=== PATIENT | female | born 1950 | race Caucasian/White ===

== ENCOUNTER 2020-07-08 07:03 | Observation (INO) | payer OTHER, SELFPAY ==
[2020-07-08] MEDS ORDERED: dexAMETHasone 10 MG/ML VIAL ONE (08:56)
[2020-07-08] MEDS ORDERED: ASPIRIN 81 MG CHEWABLE TABLET ONE (08:56)
[2020-07-08] MEDS ORDERED: NA CHLORIDE 0.9% 1,000 ML ONE (08:57)
[2020-07-08] MEDS ORDERED: FAMOTIDINE 20 MG/2 ML VIAL IV ONE (08:57)
[2020-07-08] MEDS ORDERED: CEFTRIAXONE/SWI 1gm 1 GM/10 ML SYR ONE (08:57)
[2020-07-08] MEDS ORDERED: ALBUTEROL INHALER 60 PUFF/8 GM IH ONE (08:57)
--- NOTE | 2020-07-08 09:04 | ER ---
Nurse's Notes [facility] Name: Helen Howard Age: 70 yrs Sex: Female : 1950 Arrival Date: 07/08/2020 Time: 07:09 Bed 15 Private MD: Diagnosis: Dyspnea;SARS-associated coronavirus as the cause of diseases classified elsewhere-covid 19 pneumonia;Asthma;Hypoxemia;Type 2 diabetes mellitus;Hypokalemia Presentation: 07/08 07:17 Chief complaint: Patient states: + COVID 06/16. Pt c/o SOB that began 06/16 and states ss that her home O2 has been 82-87% for the past few days. Coronavirus screen: Client reports previous positive COVID test result. Date of collection: June 16, 2020. Ebola Screen: Patient denies exposure to infectious person. Patient denies travel to an Ebola-affected area in the 21 days before illness onset. Initial Sepsis Screen: Does the patient meet any 2 criteria? HR > 90 bpm. Does the patient have a suspected source of infection? No. Patient's initial sepsis screen is negative. Risk Assessment: Do you want to hurt yourself or someone else? Patient reports no desire to harm self or others. Onset of symptoms was June 16, 2020. 07:17 Method Of Arrival: Ambulatory 07:17 Acuity: SATISH 3 ss Historical: - Allergies: 07:22 IV contrast; ss 07:22 Dilantin; ss 07:22 Sitbsgw-Fxt-Ffz Reductase Inhibitors; ss 07:22 Lisinopril; ss - PMHx: 07:22 Asthma; Hypertension; Diabetes - NIDDM; ss - PSHx: 07:22 ; Hysterectomy; Hernia repair; ankle; Tonsillectomy; ss - Immunization history:: Adult Immunizations up to date. - Social history:: Smoking status: Patient denies any tobacco usage or history of. Screenin:08 Abuse screen: Denies threats or abuse. Denies injuries from another. Nutritional ph screening: No deficits noted. Tuberculosis screening: No symptoms or risk factors identified. Fall Risk None identified. Assessment: 08:00 General: Appears in no apparent distress. comfortable, slender, well groomed, Behavior ph is calm, cooperative, appropriate for age. Pain: Complains of pain in chest. Neuro: Level of Consciousness is awake, alert, obeys commands, Oriented to person, place, time, situation, Reports dizziness, weakness. Cardiovascular: Reports chest pain, fatigue, lightheadedness, shortness of breath, Denies nausea, vomiting, Capillary refill < 3 seconds in bilateral fingers Patient's skin is warm and dry. Chest pain is located in left lateral chest. Respiratory: Reports shortness of breath at rest cough that is pain with cough Airway is patent Respiratory effort is even, unlabored, Respiratory pattern is regular, symmetrical. GI: No signs and/or symptoms were reported involving the gastrointestinal system. Derm: Skin is intact, is healthy with good turgor, Skin is pink, warm \T\ dry. Musculoskeletal: Circulation, motion, and sensation intact. Range of motion: intact in all extremities. 09:00 Reassessment: Patient appears in no apparent distress at this time. Patient and/or ph family updated on plan of care and expected duration. Pain level reassessed. Patient is alert, oriented x 3, equal unlabored respirations, skin warm/dry/pink. 10:00 Reassessment: Patient appears in no apparent distress at this time. Patient and/or ph family updated on plan of care and expected duration. Pain level reassessed. Patient is alert, oriented x 3, equal unlabored respirations, skin warm/dry/pink. Pt c/o pain to L rib area, ERP notified, see MAR. 11:00 Reassessment: Patient appears in no apparent distress at this time. Patient and/or ph family updated on plan of care and expected duration. Pain level reassessed. Patient is alert, oriented x 3, equal unlabored respirations, skin warm/dry/pink. 12:15 Reassessment: Patient appears in no apparent distress at this time. Patient and/or ph family updated on plan of care and expected duration. Pain level reassessed. Patient is alert, oriented x 3, equal unlabored respirations, skin warm/dry/pink. 13:33 Reassessment: Patient appears in no apparent distress at this time. Patient and/or ph family updated on plan of care and expected duration. Pain level reassessed. Patient is alert, oriented x 3, equal unlabored respirations, skin warm/dry/pink. Pt eating lunch, grateful for food, tolerating well. 14:10 General: Appears in no apparent distress. comfortable, Behavior is calm, cooperative. vg1 14:10 Pain: Denies pain. Neuro: Level of Consciousness is awake, alert, obeys commands, vg1 Oriented to person, place, time, situation. Respiratory: Airway is patent Respiratory effort is even, unlabored, Respiratory pattern is regular, symmetrical. Respiratory: Breath sounds are diminished bilaterally. in left posterior lower lobe and right posterior lower lobe. GI: No signs and/or symptoms were reported involving the gastrointestinal system. : No signs and/or symptoms were reported regarding the genitourinary system. EENT: No signs and/or symptoms were reported regarding the EENT system. Derm: Skin is intact, is healthy with good turgor. Musculoskeletal: Range of motion: intact in all extremities. 15:32 Reassessment: Patient appears in no apparent distress at this time. Patient and/or vg1 family updated on plan of care and expected duration. Pain level reassessed. Patient is alert, oriented x 3, equal unlabored respirations, skin warm/dry/pink. 16:13 Reassessment: Patient appears in no apparent distress at this time. Patient is alert, vg1 oriented x 3, equal unlabored respirations, skin warm/dry/pink. Patient states feeling better. Vital Signs: 07:17 BP 129 / 67; Pulse 100; Resp 17; Temp 98.5(TE); Pulse Ox 96% ; Weight 53.07 kg; Height ss 5 ft. 2 in. (157.48 cm); Pain 4/10; 09:00 BP 128 / 56; Pulse 94; Resp 18; Pulse Ox 93% on R/A; ph 10:19 BP 131 / 55; Pulse 95; Resp 22; Pulse Ox 95% on R/A; ph 11:30 BP 120 / 53; Pulse 92; Resp 20; Pulse Ox 99% on 2 lpm NC; ph 12:28 BP 122 / 55; Pulse 87; Resp 18; Pulse Ox 99% on 2 lpm NC; ph 13:33 BP 121 / 62; Pulse 110; Resp 20; Pulse Ox 98% on 2 lpm NC; ph 14:15 BP 115 / 55; Pulse 105; Resp 18; Pulse Ox 97% on 2 lpm NC; vg1 15:00 BP 112 / 54; Pulse 103; Resp 20; Pulse Ox 97% on 2 lpm NC; vg1 15:45 BP 111 / 53; Pulse 97; Resp 22; Pulse Ox 96% on 2 lpm NC; vg1 16:30 BP 112 / 55; Pulse 99; Resp 20; Pulse Ox 97% on 2 lpm NC; vg1 07:17 Body Mass Index 21.40 (53.07 kg, 157.48 cm) ED Course: 07:09 Patient arrived in ED. rg4 07:20 Triage completed. ss 07:22 Arm band placed on right wrist. 07:40 Cherie Bains, RN is Primary Nurse. ph 08:07 XRAY Chest (1 view) In Process Unspecified. EDMS 08:15 Kleber Engle MD is Attending Physician. karoline 09:02 Zain Rothman MD is Hospitalizing Provider. karoline 09:40 Initial lab(s) drawn, by me, sent to lab. EKG done, by ED staff, reviewed by Kleber Engle MD. Inserted saline lock: 20 gauge in right antecubital area, using aseptic technique. Blood collected. Patient admitted, IV remains in place. 10:09 Patient has correct armband on for positive identification. Placed in gown. Bed in low ph position. Call light in reach. Side rails up X 1. Pulse ox on. NIBP on. Door closed. Noise minimized. Warm blanket given. 13:58 COVID swab sent to lab. jp3 14:06 Primary Nurse role handed off by Cherie Bains, RN vg1 14:06 Lacey Ochoa, RN is Primary Nurse. vg1 Administered Medications: 09:35 Drug: Albuterol HFA Inhaler 4 puffs Route: Inhalation; ph 13:46 Follow up: Response: No adverse reaction ph 09:40 Drug: NS 0.9% 1000 ml Route: IV; Rate: 125 ml/hr; Site: right antecubital; ph 13:46 Follow up: Response: No adverse reaction; IV Status: Infusion continued upon admission ph 09:45 Drug: Aspirin 162 mg Route: PO; ph 13:46 Follow up: Response: No adverse reaction ph 09:48 Drug: Decadron - Dexamethasone 6 mg Route: IVP; Site: right antecubital; ph 13:46 Follow up: Response: No adverse reaction ph 09:50 Drug: Pepcid 20 mg Route: IVP; Site: right antecubital; ph 13:46 Follow up: Response: No adverse reaction ph 09:55 Drug: Rocephin 1 grams Route: IV; Rate: per protocol; Site: right antecubital; ph 10:05 Follow up: Response: No adverse reaction; IV Status: Completed infusion ph 11:39 Drug: Lovenox 1 mg/kg Route: Sub-Q; Site: right lower abdomen; ph 13:45 Follow up: Response: No adverse reaction ph 11:39 Drug: Potassium Effervescent Tablet 25 mEq Route: PO; ph 13:45 Follow up: Response: No adverse reaction ph 11:40 Drug: morphine 2 mg Route: IVP; Site: right antecubital; ph 13:45 Follow up: Response: No adverse reaction; Pain is decreased ph 11:40 Drug: Zofran (Ondansetron) 4 mg Route: IVP; Site: right antecubital; ph 13:45 Follow up: Response: No adverse reaction ph 13:15 Drug: Zithromax 500 mg Route: IVPB; Infused Over: 1 hrs; Site: right antecubital; ph 14:26 Follow up: IV Status: Completed infusion vg1 15:31 Follow up: Response: No adverse reaction; IV Status: Completed infusion vg1 Outcome: 09:03 Decision to Hospitalize by Provider. karoline 17:28 Admitted to ER Hold. Please see [facility] for further documentation. vg1 17:28 Condition: stable 17:28 Instructed on the need for admit. 18:27 Patient left the ED. vg1 Signatures: Dispatcher [employer] EDKleber Hyman MD MD cha Smirch, Shelby, RN RN ss Hall, Patricia, RN RN ph Garcia, Rubi rg4 Art Ya jp3 Lacey Ochoa RN RN vg1 Corrections: (The following items were deleted from the chart) 14:24 14:10 Respiratory: vg1 vg1 : 14:10 General: Appears in no apparent distress. comfortable, Behavior is calm, vg1 cooperative, vg1 : 14:10 Pain: Denies pain. vg1 vg1 : 14:10 Neuro: Level of Consciousness is awake, alert, obeys commands, Oriented to vg1 person, place, time, situation, vg1 : 14:10 Cardiovascular: Patient's skin is warm and dry. vg1 vg1 14: 14:10 Respiratory: Breath sounds are diminished bilaterally. in left posterior lower vg1 lobe and right posterior lower lobe vg1 14:10 GI: No signs and/or symptoms were reported involving the gastrointestinal system. vg1 vg1 14:10 : No signs and/or symptoms were reported regarding the genitourinary system. [id number] 14:10 EENT: No signs and/or symptoms were reported regarding the EENT system. vg1 vg1 14:10 Derm: Skin is pink, warm \T\ dry. vg1 vg1 14:10 Musculoskeletal: Range of motion: intact in all extremities, vg1 vg1
--- NOTE | 2020-07-08 09:04 | EDPHYS ---
Physician Documentation [facility] Name: Helen Howard Age: 70 yrs Sex: Female : 1950 Arrival Date: 07/08/2020 Time: 07:09 Bed 15 Private MD: ED Physician Kleber Engle HPI: 07/08 08:55 This 70 yrs old Female presents to ER via Ambulatory with complaints of karoline Breathing Difficulty, Covid+. 08:55 The patient has shortness of breath at rest, with light activity. karoline 08:58 Onset: The symptoms/episode began/occurred 10 day(s) ago. Duration: The symptoms are karoline continuous, and are steadily getting worse. The patient's shortness of breath is aggravated by coughing, exertion, light activity, supine position, is alleviated by elevating head, rest, application of supplemental oxygen. Associated signs and symptoms: Pertinent positives: non-productive cough. Severity of symptoms: At their worst the symptoms were moderate in the emergency department the symptoms are unchanged. The patient has experienced similar episodes in the past, a few times. Historical: - Allergies: 07:22 IV contrast; ss 07:22 Dilantin; ss 07:22 Oonznns-Udq-Meg Reductase Inhibitors; ss 07:22 Lisinopril; ss - PMHx: 07:22 Asthma; Hypertension; Diabetes - NIDDM; ss - PSHx: 07:22 ; Hysterectomy; Hernia repair; ankle; Tonsillectomy; ss - Immunization history:: Adult Immunizations up to date. - Social history:: Smoking status: Patient denies any tobacco usage or history of. ROS: 08:59 Constitutional: Negative for fever, chills, and weight loss, Eyes: Negative for injury, karoline pain, redness, and discharge, ENT: Negative for injury, pain, and discharge, Neck: Negative for injury, pain, and swelling, Cardiovascular: Negative for chest pain, palpitations, and edema, Abdomen/GI: Negative for abdominal pain, nausea, vomiting, diarrhea, and constipation, Back: Negative for injury and pain, : Negative for injury, bleeding, discharge, and swelling, MS/Extremity: Negative for injury and deformity, Skin: Negative for injury, rash, and discoloration, Neuro: Negative for headache, weakness, numbness, tingling, and seizure, Psych: Negative for depression, anxiety, suicide ideation, homicidal ideation, and hallucinations, Allergy/Immunology: Negative for hives, rash, and allergies, Endocrine: Negative for neck swelling, polydipsia, polyuria, polyphagia, and marked weight changes. 08:59 Respiratory: Positive for cough, shortness of breath, wheezing, inspiratory, expiratory. Exam: 08:59 Constitutional: This is a well developed, well nourished patient who is awake, alert, karoline and in no acute distress. Head/Face: Normocephalic, atraumatic. Eyes: Pupils equal round and reactive to light, extra-ocular motions intact. Lids and lashes normal. Conjunctiva and sclera are non-icteric and not injected. Cornea within normal limits. Periorbital areas with no swelling, redness, or edema. ENT: Nares patent. No nasal discharge, no septal abnormalities noted. Tympanic membranes are normal and external auditory canals are clear. Oropharynx with no redness, swelling, or masses, exudates, or evidence of obstruction, uvula midline. Mucous membranes moist. Neck: Trachea midline, no thyromegaly or masses palpated, and no cervical lymphadenopathy. Supple, full range of motion without nuchal rigidity, or vertebral point tenderness. No Meningismus. Chest/axilla: Normal chest wall appearance and motion. Nontender with no deformity. No lesions are appreciated. Abdomen/GI: Soft, non-tender, with normal bowel sounds. No distension or tympany. No guarding or rebound. No evidence of tenderness throughout. Back: No spinal tenderness. No costovertebral tenderness. Full range of motion. Female : Normal external genitalia. Skin: Warm, dry with normal turgor. Normal color with no rashes, no lesions, and no evidence of cellulitis. MS/ Extremity: Pulses equal, no cyanosis. Neurovascular intact. Full, normal range of motion. Neuro: Awake and alert, GCS 15, oriented to person, place, time, and situation. Cranial nerves II-XII grossly intact. Motor strength 5/5 in all extremities. Sensory grossly intact. Cerebellar exam normal. Normal gait. Psych: Awake, alert, with orientation to person, place and time. Behavior, mood, and affect are within normal limits. 08:59 Cardiovascular: Rate: tachycardic, Rhythm: regular, Pulses: Pulses are 4+ in bilateral radial, brachial, femoral, popliteal, posterior tibial and and dorsalis pedis arteries.. Heart sounds: normal, Edema: is not appreciated, JVD: is not appreciated. 08:59 Respiratory: mild respiratory distress is noted, Respirations: labored breathing, that is mild, Breath sounds: bronchial sounds, that are moderate, decreased breath sounds, that are moderate, rhonchi, that are moderate, are scattered, stridor, is not appreciated, wheezing: expiratory 08:59 Musculoskeletal/extremity: Extremities: all appear grossly normal, with no appreciated pain with palpation, ROM: full active range of motion, full passive range of motion, Pulses: noted to be 4+ in the bilateral radial, brachial, femoral, popliteal, posterior tibial and and dorsalis pedis arteries., Sensation intact. Compartment Syndrome exam of affected extremity: is normal. DVT Exam: No signs of deep vein thrombosis. no pain, no swelling, no tenderness, negative Homans' sign noted on exam, no appreciated bluish discoloration, no erythema, no increased warmth. 09:51 ECG was reviewed by the Attending Physician. karoline Vital Signs: 07:17 BP 129 / 67; Pulse 100; Resp 17; Temp 98.5(TE); Pulse Ox 96% ; Weight 53.07 kg; Height ss 5 ft. 2 in. (157.48 cm); Pain 4/10; 09:00 BP 128 / 56; Pulse 94; Resp 18; Pulse Ox 93% on R/A; ph 10:19 BP 131 / 55; Pulse 95; Resp 22; Pulse Ox 95% on R/A; ph 11:30 BP 120 / 53; Pulse 92; Resp 20; Pulse Ox 99% on 2 lpm NC; ph 12:28 BP 122 / 55; Pulse 87; Resp 18; Pulse Ox 99% on 2 lpm NC; ph 13:33 BP 121 / 62; Pulse 110; Resp 20; Pulse Ox 98% on 2 lpm NC; ph 14:15 BP 115 / 55; Pulse 105; Resp 18; Pulse Ox 97% on 2 lpm NC; vg1 15:00 BP 112 / 54; Pulse 103; Resp 20; Pulse Ox 97% on 2 lpm NC; vg1 15:45 BP 111 / 53; Pulse 97; Resp 22; Pulse Ox 96% on 2 lpm NC; vg1 16:30 BP 112 / 55; Pulse 99; Resp 20; Pulse Ox 97% on 2 lpm NC; vg1 07:17 Body Mass Index 21.40 (53.07 kg, 157.48 cm) ss MDM: 08:15 Patient medically screened. [facility] 09:01 Differential diagnosis: asthma, Bronchitis Chronic Obstructive Pulmonary Disease karoline pneumonia, pulmonary edema, Pulmonary Embolism reactive airway disease. Antibiotic administration: Rocephin and Zithromax given. The patient's Wells Deep Vein Thrombosis Score was calculated as follows: Heart Rate >100 BPM (1.5 Pts) Total Score: 0-2 Pts- Low Risk. Differential Diagnosis: Bronchitis Influenza Upper Respiratory Infection Sinusitis Asthma Exacerbation Viral Syndrome Pneumonia. The patient's pulmonary embolism risk score was calculated as follows: the patients heart rate is greater than 100 beats per minute (1.5 Pts) Total Score: 0-2 points. This patient was found to be at low risk for a pulmonary embolism by using the Well's assessment criteria. Immunization status: Pneumococcal vaccine: Influenza vaccine: Data reviewed: vital signs, nurses notes, lab test result(s), EKG, radiologic studies, plain films. Data interpreted: library monitor: rate is 100 beats/min, rhythm is regular, Pulse oximetry: on. Test interpretation: by ED physician or midlevel provider: ECG, plain radiologic studies. Counseling: I had a detailed discussion with the patient and/or guardian regarding: the historical points, exam findings, and any diagnostic results supporting the discharge/admit diagnosis, lab results, radiology results, the need for further work-up and treatment in the hospital. 07/08 08:29 Order name: Basic Metabolic Panel karoline 07/08 08:29 Order name: CBC with Diff karoline 07/08 08:29 Order name: LFT's 07/08 08:29 Order name: Magnesium karoline 07/08 08:29 Order name: NT PRO-BNP; Complete Time: 10:44 karoline 07/08 08:29 Order name: PT-INR; Complete Time: 10:44 [facility] 07/08 08:29 Order name: Troponin (emerg Dept Use Only); Complete Time: 10:44 [facility] 07/08 08:29 Order name: Blood Culture Adult (2) 07/08 08:29 Order name: Ferritin; Complete Time: 10:44 [facility] 07/08 08:29 Order name: CRP; Complete Time: 10:44 [facility] 07/08 08:29 Order name: Basic Metabolic Panel; Complete Time: 10:44 [facility] 07/08 08:30 Order name: CBC with Automated Diff; Complete Time: 10:44 [facility] 07/08 08:30 Order name: Liver (Hepatic) Function; Complete Time: 10:44 [facility] 07/08 08:30 Order name: Magnesium; Complete Time: 10:44 [facility] 07/08 07:31 Order name: XRAY Chest (1 view); Complete Time: 10:05 07/08 08:29 Order name: EKG; Complete Time: 08:30 [facility] 07/08 12:20 Order name: COVID-19 07/08 14:06 Order name: CORONAVIRUS [facility] 07/08 15:09 Order name: SARS-COV-2 RT PCR [facility] 07/08 08:29 Order name: Cardiac monitoring; Complete Time: 10:12 [facility] 07/08 08:29 Order name: EKG - Nurse/Tech; Complete Time: 10:12 [facility] 07/08 08:29 Order name: IV Saline Lock; Complete Time: 10:13 [facility] 07/08 08:29 Order name: Labs collected and sent; Complete Time: 11:03 [facility] 07/08 08:29 Order name: O2 Per Protocol; Complete Time: 11:03 [facility] 07/08 08:29 Order name: O2 Sat Monitoring; Complete Time: 11:03 [facility] 07/08 09:10 Order name: CONS Physician Consult [facility] 07/08 11:38 Order name: Diet Heart Healthy; Complete Time: 11:39 ph EC:51 Rate is 89 beats/min. Rhythm is regular. QRS [place] is Normal. [place] interval is normal. QRS karoline interval is normal. QT interval is normal. No Q waves. T waves are Normal. No ST changes noted. Clinical impression: NSR w/ Non-specific ST/T Changes and No evidence of ischemia. Interpreted by me. Reviewed by me. Administered Medications: 09:35 Drug: Albuterol HFA Inhaler 4 puffs Route: Inhalation; ph 13:46 Follow up: Response: No adverse reaction ph 09:40 Drug: NS 0.9% 1000 ml Route: IV; Rate: 125 ml/hr; Site: right antecubital; ph 13:46 Follow up: Response: No adverse reaction; IV Status: Infusion continued upon admission ph 09:45 Drug: Aspirin 162 mg Route: PO; ph 13:46 Follow up: Response: No adverse reaction ph 09:48 Drug: Decadron - Dexamethasone 6 mg Route: IVP; Site: right antecubital; ph 13:46 Follow up: Response: No adverse reaction ph 09:50 Drug: Pepcid 20 mg Route: IVP; Site: right antecubital; ph 13:46 Follow up: Response: No adverse reaction ph 09:55 Drug: Rocephin 1 grams Route: IV; Rate: per protocol; Site: right antecubital; ph 10:05 Follow up: Response: No adverse reaction; IV Status: Completed infusion ph 11:39 Drug: Lovenox 1 mg/kg Route: Sub-Q; Site: right lower abdomen; ph 13:45 Follow up: Response: No adverse reaction ph 11:39 Drug: Potassium Effervescent Tablet 25 mEq Route: PO; ph 13:45 Follow up: Response: No adverse reaction ph 11:40 Drug: morphine 2 mg Route: IVP; Site: right antecubital; ph 13:45 Follow up: Response: No adverse reaction; Pain is decreased ph 11:40 Drug: Zofran (Ondansetron) 4 mg Route: IVP; Site: right antecubital; ph 13:45 Follow up: Response: No adverse reaction ph 13:15 Drug: Zithromax 500 mg Route: IVPB; Infused Over: 1 hrs; Site: right antecubital; ph 14:26 Follow up: IV Status: Completed infusion vg1 15:31 Follow up: Response: No adverse reaction; IV Status: Completed infusion vg1 Disposition: 07/08/20 09:03 Hospitalization ordered by Zain Rothman for Inpatient Admission. Preliminary diagnosis are Dyspnea, SARS-associated coronavirus as the cause of diseases classified elsewhere - covid 19 pneumonia, Asthma, Hypoxemia, Type 2 diabetes mellitus, Hypokalemia. - Bed requested for Telemetry/MedSurg (Inpatient). - Status is Inpatient Admission. vg1 - Condition is Fair. - Problem is new. - Symptoms have improved. Signatures: Dispatcher [employer] EDNicky Wadsworth RN RN dw Anderson, Corey, MD MD cha Smirch, Shelby, RN RN ss Hall, Patricia, RN RN ph Garcia, Victoria, RN RN vg1 Corrections: (The following items were deleted from the chart) 10:44 09:03 Hospitalization Ordered by Zain Rothman MD for Inpatient Admission. Preliminary karoline diagnosis is Dyspnea; SARS-associated coronavirus as the cause of diseases classified elsewhere - covid 19 pneumonia; Asthma; Hypoxemia; Type 2 diabetes mellitus. Bed requested for Telemetry/MedSurg (Inpatient). Status is Inpatient Admission. Condition is Fair. Problem is new. Symptoms have improved. [facility] 16:57 10:44 07/08/2020 09:03 Hospitalization Ordered by Zain Rothman MD for Inpatient ss Admission. Preliminary diagnosis is Dyspnea; SARS-associated coronavirus as the cause of diseases classified elsewhere - covid 19 pneumonia; Asthma; Hypoxemia; Type 2 diabetes mellitus; Hypokalemia. Bed requested for Telemetry/MedSurg (Inpatient). Status is Inpatient Admission. Condition is Fair. Problem is new. Symptoms have improved. [facility] 17:50 16:57 07/08/2020 09:03 Hospitalization Ordered by Zain Rothman MD for Inpatient dw Admission. Preliminary diagnosis is Dyspnea; SARS-associated coronavirus as the cause of diseases classified elsewhere - covid 19 pneumonia; Asthma; Hypoxemia; Type 2 diabetes mellitus; Hypokalemia. Bed requested for [facility] ER HOLD. Status is Inpatient Admission. Condition is Fair. Problem is new. Symptoms have improved. 18:27 17:50 07/08/2020 09:03 Hospitalization Ordered by Zain Rothman MD for Inpatient vg1 Admission. Preliminary diagnosis is Dyspnea; SARS-associated coronavirus as the cause of diseases classified elsewhere - covid 19 pneumonia; Asthma; Hypoxemia; Type 2 diabetes mellitus; Hypokalemia. Bed requested for Telemetry/MedSurg (Inpatient). Status is Inpatient Admission. Condition is Fair. Problem is new. Symptoms have improved. dw
[2020-07-08] MEDS ORDERED: ALBUTEROL INHALER 60 PUFF/8 GM IH PRN (09:17)
--- NOTE | 2020-07-08 09:25 | RAD REPORT ---
EXAM DESCRIPTION: Claudia Single View07/08/2020 8:07 am CLINICAL HISTORY: Shortness of breath COMPARISON: none FINDINGS: Moderate right and [id number] left pulmonary opacities. The heart is normal size IMPRESSION: Bilateral pulmonary opacities likely pneumonia
[2020-07-08 10:00] LABS: Absolute Lymphocytes (CBC) 1.3 K/uL (0.7-4.9); Basophils % 1.3 % (0-1.3); Hematocrit 34.9 % (36.0-45.0); MPV 7.3 fL (7.6-11.3); RBC Red Blood Cell Count 3.94 M/uL (3.86-4.86)
[2020-07-08 10:09] LABS: Protime INR 1.03
[2020-07-08 10:38] LABS: ALT/SGPT 11 U/L (12-78); AST/SGOT 10 U/L (15-37); Albumin 2.6 g/dL (3.4-5.0); Alkaline Phosphatase 82 U/L (45-117); BUN Blood Urea Nitrogen 7 mg/dL (7-18); Bicarbonate 29 mmol/L (21-32); Bilirubin Direct < 0.1 mg/dL (0-0.2); Bilirubin Total 0.4 mg/dL (0.2-1.0); Ferritin 197.6 ng/mL (8-388); Glucose Level 189 mg/dL (74-106); Magnesium 1.9 mg/dL (1.8-2.4); NT PRO-BNP 94 pg/mL (<125); Potassium 3.4 mmol/L (3.5-5.1); Protein, Total 6.6 g/dL (6.4-8.2); Sodium Level 137 mmol/L (136-145); Troponin (Emerg Dept Use Only) < 0.02 ng/mL (0.0-0.045)
[2020-07-08] MEDS ORDERED: MORPHINE 2 MG/ML SYR ONE (11:29)
[2020-07-08] MEDS ORDERED: ONDANSETRON 4 MG/2 ML VIAL ONE (11:30)
[2020-07-08] MEDS ORDERED: ENOXAPARIN 60 MG/0.6 ML SQ ONE (11:30)
[2020-07-08] MEDS ORDERED: POTASSIUM CL SA 10 MEQ TAB PO ONE (11:31)
[2020-07-08] MEDS ORDERED: AZITHROMYCIN 500 MG/250 ML BAG IV ONE (12:00)
--- NOTE | 2020-07-08 15:41 | P.HP ---
Certification for Inpatient Patient admitted to: Inpatient With expected LOS: >2 Midnights Patient will require the following post-hospital care: None Practitioner: I am a practitioner with admitting privileges, knowledge of patient current condition, hospital course, and medical plan of care. Services: Services provided to patient in accordance with Admission requirements found in Title 42 Section 412.3 of the Code of Federal Regulations Patient History Date of Service: 07/08/20 Primary Care Provider: Amador Reason for admission: bilateral pneumonia, covid related History of Present Illness: Patient of our practice. She has a pmh of htn, dm2 and squamos cell cancer. the patient was diagnosed with coid on 06.26. She was treated as an outpatient with dexamethason. She was initialy improving. However the patient has a family member who refused to test and wear a mask. Her daughter in law was recentlly admitted for covid as well. The patient was getting more feverish with cough and shortness of breath. She eventually called the ems. She was found to have hypoxia in the 70% and was started on oxygent She is currently resting comfortable in the ER. Review of Systems General: Fever Respiratory: Cough, Shortness of Breath Physical Examination - Physical Exam General: Alert, In no apparent distress HEENT: Atraumatic, PERRLA, Mucous membr. moist/pink, EOMI, Sclerae nonicteric Neck: Supple, 2+ carotid pulse no bruit, No LAD, Without JVD or thyroid abnormality Respiratory: Clear to auscultation bilaterally, Normal air movement Cardiovascular: Regular rate/rhythm, Normal S1 S2 Gastrointestinal: Normal bowel sounds, No tenderness Musculoskeletal: No tenderness Integumentary: No rashes Neurological: Normal gait, Normal speech, Normal strength at 5/5 x4 extr, Normal tone, Normal affect Lymphatics: No axilla or inguinal lymphadenopathy Assessment and Plan - Problems (Diagnosis) (1) COVID-19 Current Visit: Yes Status: Acute Plan: consut to Dr. Thmoas. Will start her on eliquis and dexamethasone. Continue breathing treatments. will continue oxygen (2) Pneumonia Current Visit: Yes Status: Acute Plan: Start the patient on zithromax. Will continue with the breathing treatments and oxygent Qualifiers: Pneumonia type: due to unspecified organism Laterality: bilateral (3) HTN (hypertension) Current Visit: Yes Status: Acute Plan: she has a been stable on amlodipine. Has a history of cough with lisinopril. Will consider an ARB such as losartan Qualifiers: Hypertension type: essential hypertension Qualified Code(s): I10 - Essential (primary) hypertension (4) Diabetes 1.5, managed as type 2 Current Visit: Yes Status: Acute Plan: As we are starting on deamethasone. Will keep her on a sliding scale. She is on janumet XR recently the Patients last a1c was 7.3 in March. Discharge Plan: Home Plan to discharge in: Greater than 2 days - Advance Directives Does patient have a Living Will: No Does patient have a Durable POA for Healthcare: No - Code Status/Comfort Care Code Status Assessed: No Code Status: Full Code Critical Care: No Time Spent Managing Pts Care (In Minutes): 45
[2020-07-08] MEDS ORDERED: dexAMETHasone 10 MG/ML VIAL IV SCH (17:00)
[2020-07-08] MEDS ORDERED: ACETAMINOPHEN 325 MG TABLET PO PRN (17:45)
[2020-07-08] MEDS: INSULIN -REGULAR HUMAN 50 UNIT/0.5 ML ML SQ SCH ×2 (17:45→22:32)
[2020-07-08] MEDS ORDERED: ONDANSETRON 4 MG/2 ML VIAL IV PRN (17:45)
[2020-07-08] MEDS ORDERED: INSULIN -REGULAR HUMAN 50 UNIT/0.5 ML ML SQ SCH (17:45)
[2020-07-08] MEDS ORDERED: ALBUTEROL 2.5 MG/3 ML NEB SOL NEB PRN (17:45)
[2020-07-08] MEDS ORDERED: GLUCAGON 1 MG/VIAL IM PRN ×2 (17:45)
[2020-07-08] MEDS ORDERED: IPRATROPIUM BROM 0.5MG/2.5ML NEB PRN (17:45)
[2020-07-08] MEDS ORDERED: ENOXAPARIN 40 MG/0.4 ML SQ SCH (17:45)
[2020-07-08] MEDS ORDERED: D50W 25 GM/50 ML SYRINGE IV PRN ×2 (17:45)
[2020-07-08] MEDS ORDERED: APIXABAN 5 MG TABLET PO SCH (21:00)
[2020-07-08] MEDS: CEFTRIAXONE/SWI 1gm 1 GM/10 ML SYR IV SCH (21:00)
[2020-07-08] MEDS ORDERED: CEFTRIAXONE 1 GM/NS 50 ML 1 GM/50 ML BAG IV SCH (21:00)
[2020-07-08] MEDS: dexAMETHasone 4 MG/ML VIAL IV SCH (21:16)
[2020-07-08] MEDS: FAMOTIDINE 20 MG/2 ML VIAL IV SCH (21:16)
[2020-07-08] MEDS: MORPHINE 2 MG/ML SYR IV PRN (21:17)
[2020-07-09] MEDS: MORPHINE 2 MG/ML SYR IV PRN ×2 (02:36→06:13)
[2020-07-09 04:10] LABS: Absolute Lymphocytes (CBC) 1.3 K/uL (0.7-4.9); Basophils % 0.7 % (0-1.3); Hematocrit 32.9 % (36.0-45.0); Lymphocytes % 11.1 % (15.3-44.8); MPV 7.3 fL (7.6-11.3); RBC Red Blood Cell Count 3.73 M/uL (3.86-4.86)
[2020-07-09 04:34] LABS: Albumin 2.6 g/dL (3.4-5.0); Bilirubin Total 0.2 mg/dL (0.2-1.0); Potassium 3.6 mmol/L (3.5-5.1); Protein, Total 6.8 g/dL (6.4-8.2)
[2020-07-09] MEDS: INSULIN -REGULAR HUMAN 50 UNIT/0.5 ML ML SQ SCH (07:30)
[2020-07-09] MEDS ORDERED: AZITHROMYCIN IV 500 MG in NA CHLORIDE 0.9% 250 ML IVPB SCH ×4 (09:00)
[2020-07-09] MEDS ORDERED: ASPIRIN EC 81 MG TAB PO SCH (09:00)
[2020-07-09 09:33] VITALS: BP 130/59; TEMP 97.7
[2020-07-09] MEDS: CEFTRIAXONE/SWI 1gm 1 GM/10 ML SYR IV SCH (09:33)
[2020-07-09] MEDS: FAMOTIDINE 20 MG/2 ML VIAL IV SCH (09:34)
[2020-07-09] MEDS: dexAMETHasone 4 MG/ML VIAL IV SCH (09:34)
[2020-07-09 09:48] VITALS: O2SAT 98
--- NOTE | 2020-07-09 11:13 | P.DS ---
Admission Date: 07/08/20 Discharge Date: 07/09/20 Primary Care Provider: Amador Disposition: ROUTINE DISCHARGE Discharge Condition: FAIR Reason for Admission: bilateral pneumonia, covid related - Problems (1) COVID-19 Current Visit: Yes Status: Acute (2) Pneumonia Current Visit: Yes Status: Acute Qualifiers: Pneumonia type: due to unspecified organism Laterality: bilateral (3) HTN (hypertension) Current Visit: Yes Status: Acute Qualifiers: Hypertension type: essential hypertension Qualified Code(s): I10 - Essential (primary) hypertension (4) Diabetes 1.5, managed as type 2 Current Visit: Yes Status: Acute Brief History of Present Illness: Patient of our practice. She has a pmh of htn, dm2 and squamos cell cancer. the patient was diagnosed with coid on 06.26. She was treated as an outpatient with dexamethason. She was initialy improving. However the patient has a family member who refused to test and wear a mask. Her daughter in law was recentlly admitted for covid as well. The patient was getting more feverish with cough and shortness of breath. She eventually called the ems. She was found to have hypoxia in the 70% and was started on oxygent She is currently resting comfortable in the ER. Hospital Course: Patient was admitted for covid pneumonia. She did well on steroids. ambulated well with a pulse ox of 93% without oxygen. have discussed the patient with Dr. Thomas. Will send her home on a month of julio. Do a slow steroid taper Start at prednisone 20mg bid for 10 days. Then go to 10mg bid. Will set up telehealth appointments for her tomorrow. She should have one on 07/19. Warned her about elevated sugars while she is on steroids. She asked about ivermeticin. Have discussed that though it works in vivo(test tubes) No evidence that it works in the human body. Vital Signs/Physical Exam: Temp Pulse Resp BP Pulse Ox 97.7 F 62 18 130/59 L 97 07/09/20 08:00 07/09/20 08:00 07/09/20 08:00 07/09/20 08:00 07/09/20 08:00 General: Alert, In no apparent distress HEENT: Atraumatic, PERRLA, EOMI Neck: Supple, JVD not distended Respiratory: Clear to auscultation bilaterally, Normal air movement Cardiovascular: Regular rate/rhythm, Normal S1 S2 Gastrointestinal: Normal bowel sounds, No tenderness Musculoskeletal: No tenderness Integumentary: No rashes Neurological: Normal speech, Normal tone, Normal affect Lymphatics: No axilla or inguinal lymphadenopathy Laboratory Data at Discharge: WBC 12.0 K/uL (4.3-10.9) H D 07/09/20 03:28 Hgb 10.9 g/dL (12.0-15.0) L 07/09/20 03:28 Hct 32.9 % (36.0-45.0) L 07/09/20 03:28 Plt Count 438 K/uL (152-406) H 07/09/20 03:28 PT 12.2 SECONDS (9.5-12.5) 07/08/20 09:30 INR 1.03 07/08/20 09:30 Sodium Cancelled 07/09/20 06:00 Potassium Cancelled 07/09/20 06:00 BUN Cancelled 07/09/20 06:00 Creatinine Cancelled 07/09/20 06:00 Glucose Cancelled 07/09/20 06:00 Magnesium 1.9 mg/dL (1.8-2.4) 07/08/20 09:30 Total Bilirubin Cancelled 07/09/20 06:00 AST Cancelled 07/09/20 06:00 ALT Cancelled 07/09/20 06:00 Alkaline Phosphatase Cancelled 07/09/20 06:00 Troponin I < 0.02 ng/mL (0.0-0.045) 07/08/20 22:35 Home Medications: Albuterol Inhaler [Ventolin Inhaler*] 4 puff IH Q6H PRN 07/09/20 Amlodipine [Norvasc*] 10 mg PO DAILY 07/09/20 Apixaban [Eliquis] 5 mg PO BID #60 tablet 07/09/20 Estrogens,Conj Cream [Premarin 0.625MG/Gm*] 42.5 appl VAG DAILY 07/09/20 Fluticasone/Salmeterol [Advair 250-50 Diskus] 1 each IH BID PRN 07/09/20 Montelukast [Singulair*] 10 mg PO DAILY 07/09/20 Prednisone [Sterapred Ds] 10 mg PO BID 6AM 6PM #40 tab.ds.pk 07/09/20 Sitagliptin Phos/Metformin HCl [Janumet Xr 100-1,000 mg Tablet] 1 each PO DAILY #90 07/09/20 New Medications: Apixaban [Eliquis] 5 mg PO BID #60 tablet Sitagliptin Phos/Metformin HCl [Janumet Xr 100-1,000 mg Tablet] 1 each PO DAILY #90 Prednisone [Sterapred Ds] 10 mg PO BID 6AM 6PM #40 tab.ds.pk Diet: ADA Activity: Ad charline Followup: Zain Rothman MD [Primary Care Provider] - 07/19/20 (telehealth appointment) Time spent managing pt's care (in minutes): 40
[2020-07-09 12:25] VITALS: BMI 21.4
--- NOTE | 2020-07-09 12:56 | RAD REPORT ---
EXAM DESCRIPTION: RAD - Chest Single View - 07/09/2020 7:19 am CLINICAL HISTORY: Chest Pain Chest pain. COMPARISON: Chest Single View dated 07/08/2020 FINDINGS: Portable technique limits examination quality. Bilateral pulmonary opacities along the inferior and periphery of both lungs appears essentially unch anged. The heart is normal in size. Mildly tortuous thoracic aorta. IMPRESSION: Stable chest since 07/08/2020 comparative study.
--- NOTE | 2020-07-09 15:30 | EKG ---
Test Date: 2020-07-08 Test Time: 09:33:19 Sales Development Director: PH MEASUREMENT RESULTS: Intervals: Rate: 89 OR: 142 QRSD: 104 QT: 360 QTc: 438 [place]: P: 51 OR: 142 QRS: 18 T: 59 INTERPRETIVE STATEMENTS: Normal sinus rhythm Normal ECG No previous ECG available for comparison Electronically Signed On 07-09-20 15:26:45 PARTICLE BOARD SUPERVISOR by Mik Jimenez
== END 2020-07-09 12:36 | disposition home or self-care (01) ==
LOC: ER 07:03 → INTOOBSV 09:06 → ERHOLD 09:06 → 2ND 18:15 → 4TH 18:24
PROVIDERS: ADMIT Internal Medicine; ATTEND Internal Medicine
DX: U07.1 COVID-19 (principal); J12.82 Pneumonia due to coronavirus disease 2019; I10 Essential (primary) hypertension; E11.9 Type 2 diabetes mellitus without complications; Z79.84 Long term (current) use of oral hypoglycemic drugs; Z79.01 Long term (current) use of anticoagulants
CPT/HCPCS: 36415; 71045; 80048; 80053; 80076; 82728; 82947; 83036; 83735; 83880; 84484; 85025; 85610; 86140; 87040; 93005; 94760; 96361; 96365; 96372; 96375; 99285; G0378; J0456; J0696; J1100; J1650; J2270; J2405; J7030; J7050; U0003